=== PATIENT | female | born 1940 | race Caucasian/White ===

== ENCOUNTER 2022-02-12 09:21 | Observation (INO) | payer MEDICARE, OTHER ==
[~2022-02-12] VITALS: Ht 170.2 cm; Wt 74.8 kg
[~2022-02-12 09:21] MED LIST: ASPIR 8181 MG PO; ATENOLOL100 MG PO; LOSARTAN POTASS50 MG PO; METFORMIN HCL500 MG PO; OMEPRAZOLE40 MG PO; ZANTAC150 MG PO
[2022-02-12] MEDS ORDERED: SODIUM CHLORIDE 0.9% 1000ML 1,000 ML IV STA (09:37)
[2022-02-12 10:01] LABS: BASOPHILS % 0.6 % (0.0-1.0); EOSINOPHILS # (AUTO) 0.1 (0.0-0.4); EOSINOPHILS % 0.7 % (0.0-6.0); HEMATOCRIT 44.3 % (34.2-44.1); HEMOGLOBIN 14.7 g/dL (12.0-16.0); LYMPHOCYTES % 28.5 % (18.0-39.1); MEAN CORPUSCULAR HGB CONC 33.2 g/dL (31-35); MEAN CORPUSCULAR VOLUME 96.5 fL (81-99); MONOCYTES # (AUTO) 0.5 (0.2-0.8); MONOCYTES % 6.6 % (4.4-11.3); NEUTROPHILS # (AUTO) 4.5 (2.1-6.9); NEUTROPHILS % 63.5 % (38.7-80.0); PLATELET COUNT 210 x10e3/uL (140-360); RED BLOOD COUNT 4.59 x10e6/uL (3.6-5.1)
[2022-02-12 10:11] LABS: INR 1.03; PARTIAL THROMBOPLASTIN TIME 28.5 seconds (23.8-35.5); PROTHROMBIN TIME 14.4 seconds (11.9-14.5)
[2022-02-12 10:24] LABS: ALANINE AMINOTRANSFERASE 19 IU/L (0-55); ALBUMIN/GLOBULIN RATIO 1.1 (0.8-2.0); ALKALINE PHOSPHATASE 46 IU/L (40-150); ANION GAP 15.4 mmol/L (8-16); BLOOD UREA NITROGEN 28 mg/dL (7-26); BUN/CREATININE RATIO 28 (6-25); CALCIUM 9.2 mg/dL (8.4-10.2); CARBON DIOXIDE 24 mmol/L (22-29); CHLORIDE 103 mmol/L (98-107); CREATINE KINASE 83 IU/L (29-168); GLUCOSE 106 mg/dL (74-118); MAGNESIUM 2.1 MG/DL (1.3-2.1); POTASSIUM 4.4 mmol/L (3.5-5.1); SODIUM 138 mmol/L (136-145)
[2022-02-12 10:32] LABS: CLARITY,URINE CLEAR (CLEAR); COLOR,URINE YELLOW (YELLOW); KETONES,URINE NEGATIVE (NEGATIVE); LEUKOCYTE ESTERASE ,URINE NEGATIVE (NEGATIVE); NITRITE,URINE NEGATIVE (NEGATIVE); PROTEIN,URINE DIPSTICK NEGATIVE (NEGATIVE); URINE UROBILINOGEN 0.2 mg/dL (0.2 - 1)
[2022-02-12 10:37] LABS: BACTERIA,URINE FEW /HPF; EPITHELIAL CELLS,URINE FEW /LPF; WBC,URINE (MAN) 0-5 /HPF (0-5)
[2022-02-12] MEDS ORDERED: ONDANSETRON HCL INJ 2MG/ML 2ML 2 MG/ML VIAL IV PRN (11:30)
[2022-02-12] MEDS: SODIUM CHLORIDE 0.9% 1000ML 1,000 ML IV SCH ×2 (12:12→21:50)
[2022-02-12] MEDS: FAMOTIDINE 20 MG/2 ML VIAL IV SCH ×2 (12:12→21:55)
[2022-02-12 15:31] LABS: CREATINE KINASE 75 IU/L (29-168)
[2022-02-12 17:30] VITALS: BP 171/63
[2022-02-12 20:00] VITALS: BP 147/69
[2022-02-12 21:00] VITALS: BP 147/69
[2022-02-12] MEDS ORDERED: METOPROLOL SUCC50 MG PO (21:05)
[2022-02-12] MEDS ORDERED: CRESTOR10 MG PO (21:05)
[2022-02-12] MEDS ORDERED: MELATONIN 3 MG TAB PO ONE (21:45)
[2022-02-13] VITALS: BP 140/68
[2022-02-13 04:00] VITALS: BP 139/66
[2022-02-13 06:48] LABS: BASOPHILS % 0.4 % (0.0-1.0); EOSINOPHILS % 0.5 % (0.0-6.0); HEMATOCRIT 44.8 % (34.2-44.1); HEMOGLOBIN 14.8 g/dL (12.0-16.0); LYMPHOCYTES # (AUTO) 1.1 (1.0-3.2); LYMPHOCYTES % 13.7 % (18.0-39.1); MEAN CORPUSCULAR HEMOGLOBIN 31.7 pg (28-32); MEAN CORPUSCULAR VOLUME 95.9 fL (81-99); MONOCYTES # (AUTO) 0.5 (0.2-0.8); NEUTROPHILS # (AUTO) 6.5 (2.1-6.9); NEUTROPHILS % 79.2 % (38.7-80.0); PLATELET COUNT 148 x10e3/uL (140-360); RED BLOOD COUNT 4.67 x10e6/uL (3.6-5.1); RED CELL DISTRIBUTION WIDTH 12.9 % (11.7-14.4)
[2022-02-13 07:29] LABS: ALBUMIN 3.6 g/dL (3.5-5.0); ANION GAP 15.3 mmol/L (8-16); CALCIUM 8.5 mg/dL (8.4-10.2); CREATININE, SERUM 0.86 mg/dL (0.57-1.11); POTASSIUM 4.3 mmol/L (3.5-5.1)
[2022-02-13] MEDS: SODIUM CHLORIDE 0.9% 1000ML 1,000 ML IV SCH (07:30)
[2022-02-13 08:04] LABS: CREATINE KINASE 57 IU/L (29-168)
[2022-02-13 08:28] VITALS: BP 111/55
[2022-02-13] MEDS ORDERED: METOPROLOL SUCCINATE 50 MG TAB XL PO SCH (09:00)
[2022-02-13] MEDS ORDERED: TRAZODONE HCL50 MG PO (09:42)
[2022-02-13] MEDS ORDERED: FAMOTIDINE 20 MG TAB PO SCH (12:45)
[2022-02-13] MEDS ORDERED: MELATONIN 3 MG TAB PO SCH (21:00)
[2022-02-13] MEDS ORDERED: SIMVASTATIN 20 MG TAB PO SCH (21:00)
== END 2022-02-13 12:10 | disposition home or self-care (01) ==
LOC: ER 09:40 → ERHOLD 11:29 → MED/SURG3 17:14
PROVIDERS: ADMIT Internal Medicine; ATTEND Internal Medicine
DX: R41.82 Altered mental status, unspecified (principal); I10 Essential (primary) hypertension; K21.9 Gastro-esophageal reflux disease without esophagitis; E78.5 Hyperlipidemia, unspecified; Z96.653 Presence of artificial knee joint, bilateral; Z88.8 Allergy status to other drugs, medicaments and biological substances; Z90.49 Acquired absence of other specified parts of digestive tract; Z20.822 Contact with and (suspected) exposure to COVID-19
CPT/HCPCS: 36415 ×2; 51700; 70450; 71045; 80053 ×2; 80061; 81001; 82550 ×2; 82553 ×2; 83735; 84484 ×2; 85025 ×2; 85610; 85730; 87086; 93005; 93306; 94799; 97116; 97161; 99284; G0378 ×2; J7030; U0002

== ENCOUNTER 2022-03-23 09:10 | Emergency (ER) | payer MEDICARE ==
[~2022-03-23] VITALS: Ht 170.2 cm; Wt 74.8 kg
[~2022-03-23 09:10] MED LIST changes: +CRESTOR10 MG PO; +METOPROLOL SUCC50 MG PO; +TRAZODONE HCL50 MG PO
== END 2022-03-23 12:42 | disposition home or self-care (01) ==
LOC: ER 09:14
DX: F03.90 Unspecified dementia, unspecified severity, without behavioral disturbance, psychotic disturbance, mood disturbance, and anxiety (principal); I10 Essential (primary) hypertension; E78.5 Hyperlipidemia, unspecified; K21.9 Gastro-esophageal reflux disease without esophagitis; Z96.653 Presence of artificial knee joint, bilateral
CPT/HCPCS: 99282